=== PATIENT | male | born 1960 | race American Indian/Alaskan Native ===

== ENCOUNTER 2019-01-16 06:14 | Inpatient (IN) | payer OTHER ==
[2019-01-16 06:40] VITALS: BMI 29.2
[2019-01-16] MEDS ORDERED: Lidocaine 4% (Laryng-O-Jet) Kit MM ONE (07:09)
[2019-01-16] MEDS ORDERED: Propofol 10 mg/ml Inj (20 ML) ONE (07:09)
[2019-01-16] MEDS ORDERED: Rocuronium 10 mg/ml (5 ml) ONE ×2 (07:09→09:50)
[2019-01-16] MEDS ORDERED: Etomidate 20 mg/10ml Inj IV ONE (07:10)
[2019-01-16] MEDS ORDERED: Absorbable Gelatin Sponge Size 12-7 ONE (07:15)
[2019-01-16] MEDS ORDERED: Bupivacaine 0.5% Inj(30mL) ONE (07:16)
[2019-01-16] MEDS ORDERED: Thrombin Topical 5,000 Int Units Spray Kit ONE (07:16)
[2019-01-16] MEDS ORDERED: Lidocaine 1% w Epi 1:100,000 Inj ONE (07:16)
[2019-01-16] MEDS ORDERED: Lactated Ringer's 1,000 ML IV ONE ×2 (07:19→11:06)
--- NOTE | 2019-01-16 07:21 | CP.PCM.HP ---
History of Present Illness - History of Present Illness History of Present Illness: This is a 58 y/o male who presents for scheduled lumbar surgery. Patient presented to my office with cc of severe LBP with associated BL LE radiculopathy. The symptoms started for ~1 year spontaneously without context of trauma and has been progressing in severity. 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 Pain relieved with rest. Also admits to BL LE paresthesias at calf if symptoms are severe. He has attempted conservative measures such as physio therapy, medications and injections without relief. At this point his daily life and activity are severely affected and wishes to pursue surgical intervention. He denies urinary or bowel incontinence. Present on Admission - Present on Admission Any Indicators Present on Admission: No Past Patient History - Past Medical History & Family History Past Medical History?: Yes - Past Social History Smoking Status: Former Smoker - CARDIAC Hx Cardiac Disorders: Yes Hx Hypercholesterolemia: Yes - PULMONARY Hx Respiratory Disorders: No - NEUROLOGICAL Hx Neurological Disorder: Yes HX Cerebrovascular Accident: Yes (STROKE 6 YEARS AGO) Other/Comment: NUMBNESS ON BOTH LEGS - HEENT Hx HEENT Problems: No - RENAL Hx Chronic Kidney Disease: No - ENDOCRINE/METABOLIC Hx Endocrine Disorders: No - HEMATOLOGICAL/ONCOLOGICAL Hx Blood Disorders: No Hx Anemia: No Hx Blood Transfusions: No - INTEGUMENTARY Hx Dermatological Problems: No - MUSCULOSKELETAL/RHEUMATOLOGICAL Hx Musculoskeletal Disorders: Yes Hx Back Pain: Yes Hx Falls: No - GASTROINTESTINAL Hx Gastrointestinal Disorders: No - GENITOURINARY/GYNECOLOGICAL Hx Genitourinary Disorders: No - PSYCHIATRIC Hx Emotional Abuse: No Hx Physical Abuse: No - SURGICAL HISTORY Hx Surgeries: Yes Other/Comment: BACK SURGERY-LONG ALEJANDRA AGO - ANESTHESIA Hx Anesthesia: Yes Hx Anesthesia Reactions: No Hx Malignant Hyperthermia: No Has any member of the family had a problem w/ anesthesia?: No Meds Allergies/Adverse Reactions: Allergies Allergy/AdvReac Type Severity Reaction Status Date / Time No Known Allergies Allergy Verified 01/09/19 14:17 Physical Exam - Head Exam Head Exam: NORMAL INSPECTION - Neck Exam Neck exam: Positive for: Full Rom - GI/Abdominal Exam GI & Abdominal Exam: Soft - Extremities Exam Extremities exam: Positive for: full ROM - Back Exam Back exam: muscle spasm Additional comments: pain with bending and twisting. - Neurological Exam Additional comments: A&Ox3 CN Intact VALDEZ Motor 5/5 throughout except pain limited HS and quad 4/5 BL sensation mild dec to LT along L4-L5 distribution positive SLR BL gait: mild antalgia . Able to do transfers and change of position. Results - Vital Signs Recent Vital Signs: Last Vital Signs Temp 98.3 F 01/16/19 06:50 Pulse 70 01/16/19 06:50 Resp 18 01/16/19 06:50 BP 123/77 01/16/19 06:50 Pulse Ox 97 01/16/19 06:50 - Imaging and Cardiology MRI L spine Status: Image reviewed by me (L4-L5 diffuse disc budge and severe DDD, facet artropathy and neuroforaminal stenosis ) Assessment & Plan - Assessment and Plan (Free Text) Assessment: Lumbar HNP, spondylosis and DDD Plan: Patient has failed conservative management . I have presented the R/B/A of lumbar spinal fusion. risks such as infection, hemorrhage, CSF leak, weakness, paralysis, failure of surgery and/or need for further surgery explained. Patients questions answered and wishes to proceed.
[2019-01-16] MEDS ORDERED: Midazolam 2 MG/2 ML VIAL ONE (07:43)
[2019-01-16] MEDS ORDERED: APROTININ/FIBRINOGEN(TISSEEL) ONE (07:47)
[2019-01-16] MEDS ORDERED: Lidocaine/Epi 1% 1:100000 20 ML IJ ONE (08:05)
[2019-01-16] MEDS ORDERED: cefTRIAXone (Rocephin) 1 gm Inj ONE (08:05)
[2019-01-16] MEDS ORDERED: HEMOSTATIC MATRIX 10 ML DIS.NEEDLE TOP ONE (09:30)
[2019-01-16] MEDS ORDERED: Neostigmine 1:1000 (1 mg/ml) Inj ONE (10:07)
[2019-01-16] MEDS ORDERED: Bupivacaine 0.5% 50 ML IJ ONE (10:46)
[2019-01-16] MEDS ORDERED: Dexamethasone 4 mg/1 ml IVP PRN (11:12)
[2019-01-16] MEDS: HYDROmorphone 0.5 mg/0.5 ml ISec IVP PRN ×3 (11:40→11:57)
--- NOTE | 2019-01-16 11:56 | PCM.SURG1 ---
Surgeon's Initial Post Op Note - Surgeon's Notes Surgeon: Dominick Rodriguez MD Sports Activities Foul Judge: Ramón BACK Type of Anesthesia: General Endo Pre-Operative Diagnosis: lumbar HNP. Scoliosis. Lumbar spondylosis with radiculopathy Operative Findings: as above Post-Operative Diagnosis: same Operation Performed: L5-S1 posterior instrumented fusion with right sided distraction. L5-S1 laminectomy Specimen/Specimens Removed: none Estimated Blood Loss: EBL {In ML}: 100 Blood Products Given: N/A Drains Used: Jayson Del Real (x2) Post-Op Condition: Good Date of Surgery/Procedure: 01/16/19 Time of Surgery/Procedure: 08:00
[2019-01-16] MEDS: Lactated Ringer's 1,000 ML IV SCH ×3 (12:35→22:33)
[2019-01-16] MEDS: ceFAZolin 1 GM in Sodium Chloride 0.9% 100 ML IVPB SCH (17:16)
--- NOTE | 2019-01-16 17:22 | OP ---
PROCEDURE DATE: 01/16/2019 PREOPERATIVE DIAGNOSIS: Lumbar spondylosis. POSTOPERATIVE DIAGNOSIS: Lumbar spondylosis. PROCEDURE: L5-S1 lumbar laminectomy and decompression L5-S1, pedicle screw fixation and instrumentation using a spinal element system, L5 to S1 posterolateral fusion. SURGEON: Dominick Rodriguez MD FACIALIST: Vic Hussein, physician retail administrative assistant, who helped me to perform the surgery and stayed throughout the case from the beginning today. DESCRIPTION OF PROCEDURE: The patient was brought to the operating room, anesthetized with general endotracheal anesthesia, placed in a prone position on the Jayson table. Care was taken to protect all pressure points. The previously made skin incision scar has been noticed. Skin has been incised. Bleeding skin has been controlled with bipolar inner tube tuber machine operator. After using the Bovie inner tube tuber machine operator, paraspinal muscles have been detached, attachments of spinous process, lamina of L5-S1, identification of the levels has been done with the help of fluoroscopy. There was a scar tissue noted on the right at L5-S1, deep retractor had been applied. At this point, by using a traditional landmark, point of entry has been noticed for pedicles of L5 and S1. Initially, a K-wire and later a drill has been used in order to enter the pedicles. Polyaxial titanium screws of spinal elements have been placed. Titanium rods have been placed. Then cap nuts have been used in order to secure them. Distal tight rods have been applied. All this has been performed under fluoroscopy-guided control. At this point, under magnification, the spinous process of L5 and S1 have been removed. By using a high-speed drill, the lamina of L5-S1 had been . By using a fine Kerrison punch, thinned out the lamina and medial part of the facets on the right side has been removed around the scar tissue. Foraminotomy was performed. Decompression has been achieved. All the never root on the right side has been found to be . After that, hemostasis was best achieved. Lateral aspect of the facet joints and transverse process have been decorticated. Demineralized bone placed in the area achieving a posterolateral fusion. After that, hemostasis was best achieved. Jayson drain was placed on the wound and brought out through a separate stab neck skin incision. Muscles and fascia were closed with 1 Vicryl, subcutaneous tissue with 3-0 Vicryl, skin has been done with intradermal stitches. The patient tolerated the procedure. After the procedure, mobilized to the recovery room in stable condition. Dominick Rodriguez MD
[2019-01-17] MEDS: ceFAZolin 1 GM in Sodium Chloride 0.9% 100 ML IVPB SCH ×2 (00:51→09:12)
[2019-01-17] MEDS: Lactated Ringer's 1,000 ML IV SCH ×2 (09:20→18:45)
--- NOTE | 2019-01-17 09:49 | CP.PCM.PN ---
Subjective - Date & Time of Evaluation Date of Evaluation: 01/17/19 Time of Evaluation: 09:47 - Subjective Subjective: Patient seen during PT. Says pain is controlled. Denies CP/SOB/dizziness. pain localized to back. Objective - Vital Signs/Intake and Output Vital Signs (last 24 hours): Temp Pulse Resp BP Pulse Ox 99.1 F 88 18 113/73 95 01/17/19 07:43 01/17/19 07:43 01/17/19 07:43 01/17/19 07:43 01/17/19 07:43 Intake and Output: 01/17/19 01/17/19 06:59 18:59 Intake Total 1800 Output Total 1275 Balance 525 - Medications Medications: Current Medications Acetaminophen (Tylenol 325mg Tab) 975 mg PO Q8 [facility] Last Admin: 01/17/19 09:19 Dose: 975 mg Atorvastatin Calcium (Lipitor) 80 mg PO DAILY [facility] Last Admin: 01/17/19 09:14 Dose: 80 mg Cyclobenzaprine HCl (Flexeril) 5 mg PO Q8 [facility] Last Admin: 01/17/19 09:13 Dose: 5 mg Hydromorphone HCl (Dilaudid 0.2 Mg/Ml Spindle Maker) 0 mg IV PRN PRN; Protocol PRN Reason: Pain, severe (8-10) Last Admin: 01/17/19 01:15 Dose: 6 mg Cefazolin Sodium 1 gm/ Sodium (Chloride) 100 mls @ 100 mls/hr IVPB Q8 [facility]; Protocol Stop: 01/17/19 09:59 Last Admin: 01/17/19 09:12 Dose: 100 mls/hr Lactated Ringer's (Lactated Ringer's) 1,000 mls @ 100 mls/hr IV .Q10H [facility] Last Admin: 01/17/19 09:20 Dose: 100 mls/hr Ondansetron HCl (Zofran Inj) 4 mg IVP Q4 PRN PRN Reason: Nausea/Vomiting Sennosides (Senokot Tab) 17.2 mg PO HS [facility] Last Admin: 01/16/19 21:17 Dose: 17.2 mg - Extremities Exam Additional comments: +ROM ankle/toes sensation intact BLE calves soft NT neg homans CHELSEY 115 and 110cc Assessment and Plan (1) Lumbar spondylosis Assessment & Plan: POD#1 s/pL5/S1 laminectomy and fusion keep drains per Dr. Rodriguez plan d/c after drains removed PT/OT VTE proph Status: Acute
[2019-01-17 10:21] LABS: HEMOGLOBIN 11.1 g/dL (12.0-18.0); MEAN CELL VOLUME 83.9 fl (80.0-94.0); MEAN CORPUSCULAR HEMOGLOBIN 27.8 pg (27.0-31.0); MEAN CORPUSCULAR HGB CONC 33.2 g/dL (33.0-37.0); RED CELL DISTRIBUTION WIDTH 14.5 % (11.5-14.5)
[2019-01-17 10:37] LABS: BLOOD UREA NITROGEN 20 mg/dl (9-20); CALCIUM 8.7 mg/dL (8.4-10.2); GFR NON-AFRICAN AMERICAN > 60
--- NOTE | 2019-01-17 10:40 | CP.PCM.HP ---
History of Present Illness - History of Present Illness History of Present Illness: 58 yo male presented with severe LBP with associated BL LE radiculopathy (R>L). Neurosurgery completed L5-S1 posterior instrumented fusion with right sided distraction. L5-S1 laminectomy. Patient seen and examined at bedside. Was on P CA pump overnight due to pain. Patient tolerating PO liquid diet well. No flatus or BM yet. No other complaints offered at this time. Meds: as per chart Allergies: as per chart Fam Hx: non contibutory Present on Admission - Present on Admission Any Indicators Present on Admission: No Review of Systems - Review of Systems All systems: reviewed and no additional remarkable complaints except (mentioned above) Past Patient History - Past Medical History & Family History Past Medical History?: Yes - Past Social History Smoking Status: Former Smoker - CARDIAC Hx Cardiac Disorders: Yes Hx Hypercholesterolemia: Yes - PULMONARY Hx Respiratory Disorders: No - NEUROLOGICAL Hx Neurological Disorder: Yes HX Cerebrovascular Accident: Yes (STROKE 6 YEARS AGO) Other/Comment: NUMBNESS ON BOTH LEGS - HEENT Hx HEENT Problems: No - RENAL Hx Chronic Kidney Disease: No - ENDOCRINE/METABOLIC Hx Endocrine Disorders: No - HEMATOLOGICAL/ONCOLOGICAL Hx Blood Disorders: No Hx Anemia: No Hx Blood Transfusions: No - INTEGUMENTARY Hx Dermatological Problems: No - MUSCULOSKELETAL/RHEUMATOLOGICAL Hx Musculoskeletal Disorders: Yes Hx Back Pain: Yes Hx Falls: No - GASTROINTESTINAL Hx Gastrointestinal Disorders: No - GENITOURINARY/GYNECOLOGICAL Hx Genitourinary Disorders: No - PSYCHIATRIC Hx Emotional Abuse: No Hx Physical Abuse: No - SURGICAL HISTORY Hx Surgeries: Yes Other/Comment: BACK SURGERY-LONG ALEJANDRA AGO - ANESTHESIA Hx Anesthesia: Yes Hx Anesthesia Reactions: No Hx Malignant Hyperthermia: No Has any member of the family had a problem w/ anesthesia?: No Meds Allergies/Adverse Reactions: Allergies Allergy/AdvReac Type Severity Reaction Status Date / Time No Known Allergies Allergy Verified 01/09/19 14:17 Physical Exam - Constitutional Appears: Non-toxic, No Acute Distress - Head Exam Head Exam: NORMAL INSPECTION - Eye Exam Eye Exam: Normal appearance - Respiratory Exam Respiratory Exam: NORMAL BREATHING PATTERN - Cardiovascular Exam Cardiovascular Exam: +S1, +S2 - GI/Abdominal Exam GI & Abdominal Exam: Normal Bowel Sounds - Neurological Exam Neurological exam: Alert, Oriented x3 - Psychiatric Exam Psychiatric exam: Normal Affect, Normal Mood - Skin Skin Exam: Normal Color, Warm Results - Vital Signs Recent Vital Signs: Last Vital Signs Temp 99.1 F 01/17/19 07:43 Pulse 95 H 01/17/19 09:00 Resp 18 01/17/19 07:43 BP 113/73 01/17/19 07:43 Pulse Ox 95 01/17/19 07:43 - Labs Result Diagrams: 01/17/19 09:50 01/17/19 09:50 Labs: Laboratory Results - last 24 hr 01/17/19 01/17/19 09:50 09:50 WBC 8.0 RBC 4.00 L Hgb 11.1 L Hct 33.6 L MCV 83.9 MCH 27.8 MCHC 33.2 RDW 14.5 Plt Count 218 Sodium 133 Potassium 3.6 Chloride 97 L Carbon Dioxide 27 Anion Gap 13 BUN 20 Creatinine 1.2 Est GFR ( Amer) > 60 Est GFR (Non-Af Amer) > 60 Random Glucose 120 H Calcium 8.7 Assessment & Plan (1) Lumbar spondylosis Status: Acute - Assessment and Plan (Free Text) Plan: available diagnostic data reviewed monitor labs monitor vitals scds DVT prophylaxis change CAFETERIA MONITOR to oral pain meds advance diet as tolerated colace/senokot Neurosurgery recommendations appreciated rest of plan as ordered
[2019-01-17] MEDS ORDERED: Oxycodone/Acetaminophen 5/325 mg Tab PO PRN (11:26)
--- NOTE | 2019-01-17 11:31 | RAD ---
Date of service: 01/16/2019 PROCEDURE: Fluoroscopic assistance in excess of 1 hour. HISTORY: PLIF COMPARISON: None TECHNIQUE: Total fluoroscopic time (continuous mode) utilized during the procedure 147.0 seconds. Submitted images from the current procedure: 2.0 FINDINGS: Total exam DLP: 76.18 (mGy). IMPRESSION: Greater than 1 hour for fluoroscopy time employed for the procedure/ examination
[2019-01-17] MEDS: Oxycodone/Acetaminophen 5/325 mg Tab PO PRN ×2 (13:38→22:16)
[2019-01-17] MEDS ORDERED: Alum-Mag Hydrox-Simethicone Susp (30 mL) PO PRN (17:07)
[2019-01-17] MEDS ORDERED: Simethicone 80 mg Chewtab PO PRN (17:08)
[2019-01-18] MEDS: Lactated Ringer's 1,000 ML IV SCH ×2 (06:38→16:26)
[2019-01-18] MEDS: Oxycodone/Acetaminophen 5/325 mg Tab PO PRN ×2 (08:51→16:30)
--- NOTE | 2019-01-18 10:22 | CP.PCM.PN ---
Subjective - Date & Time of Evaluation Date of Evaluation: 01/18/19 Time of Evaluation: 10:21 - Subjective Subjective: Patient states pain is improving today. He was able to walk a lot more today. Denies CP/SOB/dizziness. Objective - Vital Signs/Intake and Output Vital Signs (last 24 hours): Temp Pulse Resp BP Pulse Ox 100.0 F H 106 H 18 134/72 95 01/18/19 07:45 01/18/19 07:45 01/18/19 07:45 01/18/19 07:45 01/18/19 07:45 Intake and Output: 01/18/19 01/18/19 06:59 18:59 Intake Total 1100 Output Total 155 Balance 945 - Medications Medications: Current Medications Acetaminophen (Tylenol 325mg Tab) 650 mg PO Q6 PRN PRN Reason: Pain, Mild (1-3) Al Hydrox/Mg Hydrox/Simethicone (Maalox Plus 30 Ml) 30 ml PO Q4 PRN PRN Reason: Indigestion / Heartburn Last Admin: 01/17/19 17:38 Dose: 30 ml Atorvastatin Calcium (Lipitor) 80 mg PO DAILY [facility] Last Admin: 01/18/19 08:50 Dose: 80 mg Cyclobenzaprine HCl (Flexeril) 5 mg PO Q8 [facility] Last Admin: 01/18/19 08:49 Dose: 5 mg Docusate Sodium (Colace) 100 mg PO BID [facility] Last Admin: 01/18/19 08:49 Dose: 100 mg Lactated Ringer's (Lactated Ringer's) 1,000 mls @ 100 mls/hr IV .Q10H [facility] Last Admin: 01/18/19 06:38 Dose: 100 mls/hr Cefazolin Sodium 1 gm/ Sodium (Chloride) 100 mls @ 100 mls/hr IVPB Q8 [facility]; Protocol Ondansetron HCl (Zofran Inj) 4 mg IVP Q4 PRN PRN Reason: Nausea/Vomiting Last Admin: 01/17/19 13:37 Dose: 4 mg Oxycodone/Acetaminophen (Percocet 5/325 Mg Tab) 1 tab PO Q6 PRN PRN Reason: Pain, moderate (4-7) Stop: 01/20/19 11:27 Last Admin: 01/18/19 08:51 Dose: 1 tab Oxycodone/Acetaminophen (Percocet 5/325 Mg Tab) 2 tab PO Q6 PRN PRN Reason: Pain, severe (8-10) Stop: 01/20/19 11:27 Sennosides (Senokot Tab) 17.2 mg PO HS [facility] Last Admin: 01/17/19 21:33 Dose: 17.2 mg Simethicone (Mylicon Chew Tab) 80 mg PO Q8 PRN PRN Reason: Flatulence - Labs Labs: 01/17/19 09:50 01/17/19 09:50 - Back Exam Additional comments: per RN drainage 105 and 200cc, left intact per Dr. Rodriguez +ROM ankle/toes sensation intact BLE calves soft NT neg homans Assessment and Plan (1) Lumbar spondylosis Assessment & Plan: POD#2 s/p L5/S1 laminectomy and fusion keep drains per Dr. Rodriguez plan d/c after drains removed PT/OT VTE proph d/w Dr. Rodriguez, agrees with above Status: Acute
[2019-01-18] MEDS: ceFAZolin 1 GM in Sodium Chloride 0.9% 100 ML IVPB SCH (16:25)
[2019-01-19] MEDS: ceFAZolin 1 GM in Sodium Chloride 0.9% 100 ML IVPB SCH ×3 (00:12→16:52)
[2019-01-19] MEDS: Lactated Ringer's 1,000 ML IV SCH (01:00)
[2019-01-20] MEDS: ceFAZolin 1 GM in Sodium Chloride 0.9% 100 ML IVPB SCH ×3 (00:56→17:39)
[2019-01-20] MEDS: Oxycodone/Acetaminophen 5/325 mg Tab PO PRN ×3 (01:10→21:44)
[2019-01-20 16:34] VITALS: RESP 20
[2019-01-20] MEDS ORDERED: Oxycodone/Acetaminophen 5/325 mg Tab PO PRN (20:17)
[2019-01-21] MEDS: ceFAZolin 1 GM in Sodium Chloride 0.9% 100 ML IVPB SCH ×2 (00:32→08:27)
[2019-01-21 07:48] VITALS: BP 132/80; PULSE 98; TEMP 98.1; O2SAT 98
[2019-01-21] MEDS: Oxycodone/Acetaminophen 5/325 mg Tab PO PRN (08:38)
--- NOTE | 2019-01-21 10:39 | CP.PCM.PN ---
Subjective - Date & Time of Evaluation Date of Evaluation: 01/21/19 Time of Evaluation: 10:37 - Subjective Subjective: Patient states pain is controlled, +BM, no new issues Objective - Vital Signs/Intake and Output Vital Signs (last 24 hours): Temp Pulse Resp BP Pulse Ox 98.1 F 98 H 20 132/80 98 01/21/19 07:47 01/21/19 07:47 01/21/19 07:47 01/21/19 07:47 01/21/19 07:47 Intake and Output: 01/21/19 01/21/19 06:59 18:59 Output Total 45 Balance -45 - Medications Medications: Current Medications Acetaminophen (Tylenol 325mg Tab) 650 mg PO Q6 PRN PRN Reason: Pain, Mild (1-3) Acetaminophen (Tylenol 325mg Tab) 650 mg PO Q4 PRN PRN Reason: Temperature Last Admin: 01/19/19 16:51 Dose: 650 mg Al Hydrox/Mg Hydrox/Simethicone (Maalox Plus 30 Ml) 30 ml PO Q4 PRN PRN Reason: Indigestion / Heartburn Last Admin: 01/17/19 17:38 Dose: 30 ml Atorvastatin Calcium (Lipitor) 80 mg PO DAILY [facility] Last Admin: 01/21/19 08:28 Dose: 80 mg Cyclobenzaprine HCl (Flexeril) 5 mg PO Q8 [facility] Last Admin: 01/21/19 08:28 Dose: 5 mg Docusate Sodium (Colace) 100 mg PO BID [facility] Last Admin: 01/21/19 08:28 Dose: 100 mg Cefazolin Sodium 1 gm/ Sodium (Chloride) 100 mls @ 100 mls/hr IVPB Q8 [facility]; Protocol Last Admin: 01/21/19 08:27 Dose: 100 mls/hr Ondansetron HCl (Zofran Inj) 4 mg IVP Q4 PRN PRN Reason: Nausea/Vomiting Last Admin: 01/17/19 13:37 Dose: 4 mg Oxycodone/Acetaminophen (Percocet 5/325 Mg Tab) 1 tab PO Q6 PRN PRN Reason: Pain, moderate (4-7) Stop: 01/23/19 20:15 Last Admin: 01/21/19 08:38 Dose: 1 tab Oxycodone/Acetaminophen (Percocet 5/325 Mg Tab) 2 tab PO Q6 PRN PRN Reason: Pain, severe (8-10) Stop: 01/23/19 20:18 Sennosides (Senokot Tab) 17.2 mg PO HS [facility] Last Admin: 01/20/19 21:09 Dose: 17.2 mg Simethicone (Mylicon Chew Tab) 80 mg PO Q8 PRN PRN Reason: Flatulence - Labs Labs: 01/17/19 09:50 01/17/19 09:50 - Back Exam Additional comments: CHELSEY 55, 40, pulled +sensation intact BLE calves soft NT neg homans +ROM ankle/toes/knee 5/5 Assessment and Plan (1) Lumbar spondylosis Assessment & Plan: POD#5 s/p L5/S1 laminectomy and fusion keep drains per Dr. Rodriguez plan d/c home today PT/OT VTE proph f/u [address] Rodriguez, call for appt keep incision clean and dry d/w Dr. Rodriguez, agrees with above Status: Acute
--- NOTE | 2019-01-21 17:45 | CP.PCM.PN ---
Subjective - Date & Time of Evaluation Date of Evaluation: 01/19/19 Time of Evaluation: 11:00 - Subjective Subjective: patient seen and examined at bedside. Interim events noted No complaints offered at this time drains still in place denies cp/sob/fever/chills. available diagnostic data reviewed Review of Systems All systems: reviewed and no additional remarkable complaints except mentioned above Objective Vital Signs Stable - Constitutional Appears: Non-toxic, No Acute Distress Head Exam: NORMAL INSPECTION Eye Exam: Normal appearance Respiratory Exam: NORMAL BREATHING PATTERN Cardiovascular Exam: +S1, +S2 GI & Abdominal Exam: Soft Neurological Exam: Alert, Awake Psychiatric exam: Normal Affect, Normal Mood Skin Exam: Normal Color, Warm Assessment and Plan monitor vitals monitor labs Cont meds Cont tx consultants appreciated input PT OOB rest of plan as ordered Assessment and Plan (1) Lumbar spondylosis Status: Acute
--- NOTE | 2019-01-21 17:46 | CP.PCM.PN ---
Subjective - Date & Time of Evaluation Date of Evaluation: 01/20/19 Time of Evaluation: 11:00 - Subjective Subjective: patient seen and examined at bedside. Interim events noted No complaints offered at this time drains still in place denies cp/sob/fever/chills. available diagnostic data reviewed Review of Systems All systems: reviewed and no additional remarkable complaints except mentioned above Objective Vital Signs Stable - Constitutional Appears: Non-toxic, No Acute Distress Head Exam: NORMAL INSPECTION Eye Exam: Normal appearance Respiratory Exam: NORMAL BREATHING PATTERN Cardiovascular Exam: +S1, +S2 GI & Abdominal Exam: Soft Neurological Exam: Alert, Awake Psychiatric exam: Normal Affect, Normal Mood Skin Exam: Normal Color, Warm Assessment and Plan monitor vitals monitor labs Cont meds Cont tx consultants appreciated input PT OOB rest of plan as ordered Assessment and Plan (1) Lumbar spondylosis Status: Acute
--- NOTE | 2019-01-24 00:35 | CP.PCM.DIS ---
Provider - Provider Date of Admission: 01/16/19 11:56 Attending physician: Teja Pierce MD Consults: 01/17/19 09:03 Neuro Surgery Consult Routine Comment: Consulting Provider: Dominick Rodriguez Consulting Physician: Dominick Rodriguez Reason for Consult: lumbar fusion Hospital Course - Lab Results Lab Results: Most Recent Lab Values WBC 8.0 K/uL (4.8-10.8) 01/17/19 09:50 RBC 4.00 Mil/uL (4.40-5.90) L 01/17/19 09:50 Hgb 11.1 g/dL (12.0-18.0) L 01/17/19 09:50 Hct 33.6 % (35.0-51.0) L 01/17/19 09:50 MCV 83.9 fl (80.0-94.0) 01/17/19 09:50 MCH 27.8 pg (27.0-31.0) 01/17/19 09:50 MCHC 33.2 g/dL (33.0-37.0) 01/17/19 09:50 RDW 14.5 % (11.5-14.5) 01/17/19 09:50 Plt Count 218 K/uL (130-400) 01/17/19 09:50 Sodium 133 mmol/l (132-148) 01/17/19 09:50 Potassium 3.6 MMOL/L (3.6-5.0) 01/17/19 09:50 Chloride 97 mmol/L (98-107) L 01/17/19 09:50 Carbon Dioxide 27 mmol/L (22-30) 01/17/19 09:50 Anion Gap 13 (10-20) 01/17/19 09:50 BUN 20 mg/dl (9-20) 01/17/19 09:50 Creatinine 1.2 mg/dl (0.8-1.5) 01/17/19 09:50 Est GFR ( Amer) > 60 01/17/19 09:50 Est GFR (Non-Af Amer) > 60 01/17/19 09:50 Random Glucose 120 mg/dL (75-110) H 01/17/19 09:50 Calcium 8.7 mg/dL (8.4-10.2) 01/17/19 09:50 Blood Type B POSITIVE 01/16/19 06:25 Blood Type Confirm B POSITIVE 01/16/19 08:20 Antibody Screen Negative 01/16/19 06:25 BBK History Checked No verified bt 01/16/19 06:25 - Hospital Course Hospital Course: This is a 58 y/o male admitted for lumbar spondylosis. Discharge Exam - Head Exam Head Exam: NORMAL INSPECTION Discharge Plan - Discharge Medications Prescriptions: Cyclobenzaprine [Flexeril] 5 mg PO Q8 PRN #20 tab PRN Reason: Muscle Spasm oxyCODONE/Acetaminophen [Percocet 5/325 mg Tab] 1 tab PO Q6 #10 tab - Follow Up Plan Condition: GOOD Disposition: HOME/ ROUTINE Instructions: Laminectomy (DC) Additional Instructions: follow up with in 7-10 days keep dressing dry and clean until follow up visit with Referrals: Dominick Rodriguez MD [Staff Provider] - Teja Pierce MD [Staff Provider] -
== END 2019-01-21 14:40 | disposition home or self-care (01) | DRG 460 ==
LOC: H.OPSURG 06:14 → H.TEL 11:56 → UNDOADMIN 13:22 → H.TEL 13:22 → H.MEDSURG1 01-19 14:40
PROVIDERS: ADMIT Family Medicine; ATTEND Family Medicine
PROC: 0SG30K1 Fusion of Lumbosacral Joint with Nonautologous Tissue Substitute, Posterior Approach, Posterior Column, Open Approach (ICD-10-PCS; principal; 2019-01-16 07:45)
DX: M47.26 Other spondylosis with radiculopathy, lumbar region (principal); M51.16 Intervertebral disc disorders with radiculopathy, lumbar region; M41.9 Scoliosis, unspecified; E78.00 Pure hypercholesterolemia, unspecified; Z86.73 Personal history of transient ischemic attack (TIA), and cerebral infarction without residual deficits; R20.0 Anesthesia of skin; Z87.891 Personal history of nicotine dependence